=== PATIENT | male | born 1990 | race Caucasian/White ===

== ENCOUNTER 2016-12-01 16:08 | Emergency (ER) | payer OTHER ==
[~2016-12-01] VITALS: Ht 175.3 cm; Wt 88.5 kg
--- OUTSIDE RECORDS SUMMARY | 2016-12-01 16:16 | External Medical Summary Rpt ---
Demographics Preferred Language Sinhala Marital Status Unknown Zoroastrianism Affiliation Unknown Race Unknown Ethnic Group Unknown Author Author , GERI CHACON Address Unknown Phone Immunization Unable to retrieve immunization data due to connection failure with Immunization Registry. Please try again later.
--- OUTSIDE RECORDS SUMMARY | 2016-12-01 16:16 | External Medical Summary Rpt ---
Author Author [employer] Organization [employer] Address Unknown Phone Unavailable Purpose Continuity of Care Document - through 2016
--- OUTSIDE RECORDS SUMMARY | 2016-12-01 16:16 | External Medical Summary Rpt ---
Author Author GERI Address Unknown Phone [email or web address] Purpose Continuity of Care Document - through 2016 Problems Code Diagnosis DOS Provider Status S80.01XA CONTUSION OF RIGHT KNEE, INITIAL ENCOUNTER S80.02XA CONTUSION OF LEFT KNEE, INITIAL ENCOUNTER
--- OUTSIDE RECORDS SUMMARY | 2016-12-01 16:16 | External Medical Summary Rpt ---
Demographics Preferred Language Pashto Marital Status Unknown Religion Affiliation Unknown Race Unknown Ethnic Group Unknown Author Author , GERI CHACON Address Unknown Phone Immunization Unable to retrieve immunization data due to connection failure with Immunization Registry. Please try again later.
--- OUTSIDE RECORDS SUMMARY | 2016-12-01 16:16 | External Medical Summary Rpt ---
Author Author GERI Address Unknown Phone Purpose Continuity of Care Document - through 2016 Problems Code Diagnosis DOS Provider Status S80.01XA CONTUSION OF RIGHT KNEE, INITIAL ENCOUNTER S80.02XA CONTUSION OF LEFT KNEE, INITIAL ENCOUNTER
--- OUTSIDE RECORDS SUMMARY | 2016-12-01 16:16 | External Medical Summary Rpt ---
Author Author [employer] Kramer, [employer] Organization [employer] Address Unknown Phone Unavailable
[2016-12-01] MEDS ORDERED: MEDROL 4MG. DOSE4 MG PO (17:05)
[2016-12-01] MEDS ORDERED: TRIAMCINOL30 GM/TUBE TP (17:05)
--- NOTE | 2016-12-01 17:06 | Urgent Treatment Center Report ---
History of Present Issue Date/Time Seen by Provider 12/01/16 4295 Visit Reason Pt arrived:Walked Presenting Problem:PT STATES POISON PAMELA SINCE THURSDAY THAT HAS SPREAD Location if Accident: Onset of symptoms date/time:11/29/16/ or onset unknown for:MEDICAL HX UNKNOWN Have you (or family members/close friends) recently traveled outside the [place]? N If Yes, where/when: Have you had exposure to infectious disease within the past month? TB? Other? Specify: c/o poison pamela cuca FAs and genitals x 2-3 days. 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 Reports a hx of poison pamela "this time every year". Hasn't taken or tried anything for symptoms. "I typicall need steroids". Denies genital swelling or difficulty urinating. "Just itchy and red. The worse the more hot I get." Source patient Exam Limitations no limitations ALLERGIES Coded Allergies: cefaclor (From [facility]) (06/28/16) History Medical History General CAD? No Angina: No [place]: Yes Hypertension? Yes Hyperlipidemia? No CHF? No DVT? No PE? No COPD? No Asthma? No Anemia? No GERD? No Gastric ulcers? No GI Bleed? No Hernia? No Thyroid Problems? No Hypothyroidism? No CVA? No Seizures? No Diabetes? No Renal Insuffiency? No UTI? No Stones? No BPH? No GB Disease: No Nephritic Syndrome? No Asplenia? No Hepatitis? No Sickle Cell Disease? No Arthritis? No Migraines? No Cataracts? No Glaucoma? No MRSA? No HIV? No TB? No Anxiety? No Depression? No Cancer? No More? No Immunization HX DT/Tetanus Unknown Surgical Hx Previous Surgery?Y WISDOM TEETH Social History Smoking Hx Smoker: Never Smoker Tobacco: No Alcohol Alcohol: No Review of Systems All Other Systems Reviewed and Negative Constitutional denies fever, denies malaise, denies weakness Eyes denies vision change, denies other (itchy) ENT denies: throat pain, throat swelling. Respiratory denies cough, denies shortness of breath Cardiovascular denies chest pain, denies palpitations Skin see HPI Psychiatric/Neurological denies headache Physical Exam Vital Signs Vital Signs Date Time Temp Pulse Resp B/P Pulse O2 O2 Flow FiO2 Ox Delivery Rate 12/01 1616 97.9 81 20 151/99 97 General Appearance normal appearance, no apparent distress Eye Exam - bilateral eye normal exam Ear, Nose, Throat normal pharynx Respiratory Status No: respiratory distress. Cardiovascular no peripheral edema Neurologic alert Mental status normal mood/affect Skin linear vesicular lesions cuca proximal FAs consistent w/ poison vine contact , no sign of infection Medical Decision Making LABS/Meds/Orders Pt receiving controlled substance in ED? No Departure Departure Time of Disposition 1701 Disposition DC Home or Self Care(routine) Clinical Impression Primary Impression: Contact dermatitis due to poison vine Condition STABLE Referrals CARLEE JOHNSON (Family) Follow up immediately for new or worsening symptoms. You should notice improvement over the next 48 hours so if not, be sure to follow up Patient Instructions DI for Poison Pamela Allergy, Poison Pamela, Poison [place], Poison [place] Additional Instructions * Poison Pamela: Discussed how poison vine spreads. Be sure to wash everything you think you might have been wearing when you were exposed. * Start steroid today. Helps with inflammation therefore, itching and rash. Follow directions on package. Rvwd side effects. Pt reports they have taken them before. * Monitor BP. If remains elevated >140/90, you develop headache, chest pain, vision changes then STOP medication immediately and seek treatment. * cool showers or compresses calms the itching. Oatmeal baths may help as well. * If you need additional medication to help with the itching, zyrtec in the morning and if necessary, benadryl at bedtime. Just remember benadryl causes drowsiness. * Steroid cream may also help. Do NOT accidental get in mouth, eyes or have intercourse w/ steroid cream on genitals. Wash hands after application Follow up immediately for new or worsening symptoms. You should notice improvement over the next 24-48 hours so if not, be sure to follow up Discharge Counseling Counseled pt/family regarding diagnosis, medications/RX, home care, follow up needs Prescriptions Current Visit Scripts Triamcinolone Acet 0.1% (Triamcinolone Acet 0.1% Cream 30GM) 1 CARMEN TP TIDP PRN rash #30 GM Methylprednisolone (Medrol Dose Doug) 4 MG PO UD #1 DOUG TAKE DIRECTED ON PACKAGING at 1700
[2016-12-01 17:07] VITALS: BP 151/99
== END 2016-12-01 17:08 | disposition home or self-care (01) ==
LOC: UTC 16:08
DX: L23.7 Allergic contact dermatitis due to plants, except food (principal)